=== PATIENT | female | born 1950 | race Caucasian/White ===

== ENCOUNTER → 2016-08-19 | Outpatient (CLI) | payer OTHER ==
[2016-08-19 10:26] LABS: CREATININE 1.3 mg/dL (0.6-1.3)
== END ==
LOC: CAT 09:19 → ULTRA 16:02 → CAT 16:29
PROVIDERS: Surgery
DX: K43.9 Ventral hernia without obstruction or gangrene (principal); R91.1 Solitary pulmonary nodule; Z90.49 Acquired absence of other specified parts of digestive tract